=== PATIENT | male | born 2000 | race Caucasian/White ===

== ENCOUNTER 2022-01-02 13:15 | Emergency (ER) | payer SELFPAY ==
[2022-01-02] MEDS ORDERED: HYDROmorphone 1 MG/ML Syringe IM ONE (14:14)
[2022-01-02] MEDS ORDERED: Ketorolac 60 MG/2 ML SDV IM ONE (14:14)
[2022-01-02] MEDS ORDERED: Cyclobenzaprine 10 MG Tab PO ONE (14:14)
== END 2022-01-02 15:45 | disposition home or self-care (01) ==
LOC: JD.ED 13:15 → EDBD 13:15 → JD.ED 15:45
DX: M54.50 Low back pain, unspecified (principal); Z88.5 Allergy status to narcotic agent
CPT/HCPCS: 72100; 96372; 99284; A9270; J1170; J1885

== ENCOUNTER 2023-05-24 09:52 | Observation (INO) | payer SELFPAY ==
[2023-05-24 11:14] LABS: BASOPHILS ABSOLUTE AUTO 0.02 K/mm3 (0.01-0.08); BASOPHILS PERCENT AUTO 0.3 % (0.1-1.2); EOSINOPHILS ABSOLUTE AUTO 0.05 K/mm3 (0.04-0.54); EOSINOPHILS PERCENT AUTO 0.7 (0.8-7.0); HEMATOCRIT 42.3 % (40.1-51.0); HEMOGLOBIN 14.4 gm/dl (13.7-17.5); IMMATURE GRAN ABSOLUTE AUTO 0.01 K/mm3 (0.00-0.10); IMMATURE GRAN PERCENT AUTO 0.1 % (<=1.0); LYMPHOCYTES ABSOLUTE AUTO 1.52 K/mm3 (1.32-3.57); LYMPHOCYTES PERCENT AUTO 20.1 % (21.8-53.1); MEAN CORPUSCULAR HEMOGLOBIN 28.5 pg (25.7-32.2); MEAN CORPUSCULAR VOLUME 83.6 fl (79.0-92.2); MEAN PLATELET VOLUME 10.5 fl (9.4-12.3); MONOCYTES ABSOLUTE AUTO 0.42 K/mm3 (0.30-0.82); MONOCYTES PERCENT AUTO 5.6 % (5.3-12.2); NEUTROPHILS ABSOLUTE AUTO 5.53 K/mm3 (1.78-5.38); NEUTROPHILS PERCENT AUTO 73.2 % (34.0-67.9); PLATELET COUNT,PLT 209 K/mm3 (163-337); RED BLOOD CELL COUNT 5.06 M/mm3 (4.63-6.08); WHITE BLOOD CELL COUNT,WBC 7.55 K/mm3 (4.23-9.07)
[2023-05-24 11:41] LABS: A/G RATIO 1.3 (1-2); ALBUMIN 4.4 g/dl (3.4-5.0); ANION GAP 13.7 (5-15); BILIRUBIN TOTAL 0.8 mg/dL (0.2-1.0); BUN/CREATININE RATIO 13.3 (14-18); CALCIUM 9.1 mg/dL (8.5-10.1); CREATININE 0.9 mg/dL (0.7-1.3); EST CRCL DRUG DOSING (CG) 132.93 mL/min; POTASSIUM,K 3.7 mEq/L (3.5-5.1); PROTEIN TOTAL,TP 7.9 g/dl (6.4-8.2)
[2023-05-24] MEDS ORDERED: Lactated Ringers 1,000 ML IV SCH (12:30)
[2023-05-24] MEDS ORDERED: Acetaminophen/HYDROcodone 325-10 MG Tab PO PRN (12:42)
[2023-05-24] MEDS ORDERED: Acetaminophen 325 MG Tab PO PRN (14:10)
== END 2023-05-25 01:00 | disposition left against medical advice (07) ==
LOC: JD.ED 09:52 → JD.MS 12:31
PROVIDERS: ADMIT Surgery; ATTEND Surgery
DX: S26.91XA Contusion of heart, unspecified with or without hemopericardium, initial encounter (principal); M54.9 Dorsalgia, unspecified; G89.29 Other chronic pain; F41.9 Anxiety disorder, unspecified; F17.210 Nicotine dependence, cigarettes, uncomplicated; Z88.5 Allergy status to narcotic agent; Z79.899 Other long term (current) drug therapy; Y04.0XXA Assault by unarmed brawl or fight, initial encounter; Y99.0 Civilian activity done for income or pay
CPT/HCPCS: 36415; 70450; 71250; 72125; 72128; 80053; 84484; 85025; 93005; 99285; A9270; J7120; 93010